=== PATIENT | female | born 1935 | race Caucasian/White ===

== ENCOUNTER 2016-07-03 12:52 | Day surgery (SDC) | payer MEDICARE, BC ==
--- NOTE | 2016-07-03 13:32 | OR ---
Operative Report - Dictated Report Narrative: Location: Main OR Anesthesia: None Preoperative Diagnosis: History of bladder cancer Postoperative Diagnosis: Same, no recurrence Procedure: #1 flexible cystoscopy with washing for cytology Indications: 81-year-old female history of TA G1 bladder cancer here for surveillance cystoscopy and cytology. Description: Consent obtained. Placed in the frog-leg position. Prepped and draped. Time-out taken . Scope inserted into the urethra and navigated to the bladder with ease. No tumors stones or suspicious lesions. Prior resection site well healed without evidence of recurrence No trabeculation. Ureters normal in number and position . Washing obtained sent for cytology. Normal bladder neck without any cystocele change. Normal urethra. Slight introital narrowing and atrophy. EBL: 0 Specimen: Washing for cytology Condition: tolerate procedure Important Findings: Negative cystoscopy. Cytology pending. FOLLOW UP: 18 months in the office.
[2016-07-03 13:53] VITALS: BP 100/66
== END 2016-07-03 12:53 | disposition home or self-care (01) ==
LOC: AMB 12:52
PROVIDERS: ATTEND Urology
PROC: 3E1K88X Irrigation of Genitourinary Tract using Irrigating Substance, Via Natural or Artificial Opening Endoscopic, Diagnostic (ICD-10-PCS; 2016-07-03)
PROC: 0TJB8ZZ Inspection of Bladder, Via Natural or Artificial Opening Endoscopic (ICD-10-PCS; principal; 2016-07-03 14:45)
DX: Z85.51 Personal history of malignant neoplasm of bladder (principal); I10 Essential (primary) hypertension; I25.10 Atherosclerotic heart disease of native coronary artery without angina pectoris; E11.9 Type 2 diabetes mellitus without complications; M19.90 Unspecified osteoarthritis, unspecified site; Z68.24 Body mass index [BMI] 24.0-24.9, adult; Z87.891 Personal history of nicotine dependence

== ENCOUNTER 2020-04-05 10:54 | Observation (INO) ==
[2020-04-05] MEDS: RINGER'S SOLUTION,LACTATED 1,000 ML IV PRN ×3 (11:38→18:19)
--- NOTE | 2020-04-05 11:44 | ANES ---
Anesthesia Pre Procedure Eval Vitals/Labs: Last Vital Signs Temp 36.4 C 04/05/20 11:06 Pulse 63 04/05/20 11:06 Resp 16 04/05/20 11:06 BP 111/76 04/05/20 11:06 Pulse Ox 97 04/05/20 11:06 HOME MEDICATIONS Docusate Sodium [Colace] 100 mg PO BID 03/05/12 [Last Taken 09/08/18] Multivitamin [One Daily] 1 ea PO DAILY 09/09/18 [Last Taken 09/09/18] aspirin 81 mg chewable tablet 81 mg PO DAILY 05/10/19 [Last Taken Unknown] cholecalciferol (vitamin D3) 50 mcg (2,000 unit) capsule 2,000 unit PO DAILY 03/30/20 [Last Taken Unknown] folic acid 800 mcg tablet 800 mcg PO DAILY 03/30/20 [Last Taken Unknown] Atenolol [Tenormin] 75 mg PO HS 04/05/20 [Last Taken Unknown] Atorvastatin Calcium [Lipitor] 80 mg PO HS 04/05/20 [Last Taken Unknown] Calcium Polycarbophil [Fibercon] 2 tab PO BID 04/05/20 [Last Taken Unknown] Clopidogrel Bisulfate [Plavix] 75 mg PO DAILY 04/05/20 [Last Taken 03/31/20] Furosemide [Lasix] 40 mg PO DAILY 04/05/20 [Last Taken Unknown] Lisinopril [Prinivil] 10 mg PO DAILY 04/05/20 [Last Taken Unknown] Potassium Chloride [K-Dur] 20 meq PO DAILY 04/05/20 [Last Taken Unknown] glipiZIDE [Glipizide] 5 mg PO DAILY 04/05/20 [Last Taken 04/05/20 08:00] Allergies/Adverse Reactions: Allergies Allergy/AdvReac Type Severity Reaction Status Date / Time Penicillins Allergy Intermediate Hives, Verified 04/05/20 11:14 swollen neck, ankles IV Contrast Dye Allergy Severe "felt like Uncoded 04/05/20 11:14 I was burning up" - Planned Procedure Planned Procedure: Esophagogastroduodenoscopy w/ poss Dilitation Medication List Reviewed:: Yes Allergies Verified: Yes Medical History (Last Reviewed 04/05/20 @ 11:38 by Karsten Loya CRNA) Metatarsal fracture (Acute) Foot fracture, left Onset Date: 01/30/20 fifth metatarsal Former consumption of alcohol Former tobacco use Wears dentures Anemia Onset Date: Unknown Arthritis Onset Date: ~1986 right hip Atrial fibrillation Carotid artery disease Coronary heart disease Onset Date: Unknown Diabetes mellitus, type 2 Onset Date: Unknown Diverticulosis Onset Date: Unknown of colon Hernia, hiatal Onset Date: Unknown Hyperlipidemia Onset Date: Unknown Hypertension Onset Date: Unknown Osteopenia Onset Date: ~2002 severe Peripheral vascular disease Onset Date: Unknown 03/2011 Dr Crowell [facility] placed stent in Rt leg Bladder cancer Broken ankle Onset Date: ~1992 Fracture of radius Onset Date: ~02/2010 closed, left distal radius History of angiography Onset Date: 01/05/182013. 01/05/18 angiography abd aorta w/bilateral lower extremity runoff. PER DIEM NURSE/stent right popliteal artery. Surgical History (Last Reviewed 04/05/20 @ 11:38 by Karsten Loya CRNA) H/O carotid endarterectomy Onset Date: ~07/2005 right H/O cystoscopy Onset Date: 03/21/10 multiple from [address] Jaime. bladder biopsy. recurrent superficial bladder carcinoma - [facility] H/O rectal polypectomy Onset Date: ~2000 sigmoidoscopy-benign hyperplastic mucosa and sessile polyp History of ankle surgery Onset Date: ~1992 History of cardiac cath Onset Date: ~1992 1 1992 History of cataract surgery Onset Date: ~2012 right and left History of cholecystectomy Onset Date: ~03/2000 lap-large stone in neck of the gallbladder History of colonoscopy Onset Date: 03/21/082000, 05/20/06 Bagan-benign polypoid mucosal hyperplasia. 03/21/08 Bagan-normal History of esophagogastroduodenoscopy (EGD) Onset Date: 03/21/08 03/21/08 Bagan-clotest negtive, mild to moderate gastritis. History of femoropopliteal bypass Onset Date: 11/25/06 10/21/06 Dr. Leyva-right. 11/25/06 Dr. Leyva-left History of heart artery stent Onset Date: ~1992 History of hysterectomy Onset Date: ~1964 MELINDA BSO - infection Family History (Last Reviewed 04/05/20 @ 11:38 by Karsten Loya CRNA) Father , age 62-[place] Myocardial infarction x3 Cancer metastatic lung ca Mother , age 66-pulmonary emboli Diabetes mellitus, type 2 Myocardial infarction Pulmonary embolism Brother , age 60's Cancer esophageal Sister , age 56 Myocardial infarction Cancer colon Sister , age 72-[place] Myocardial infarction Son Cancer leukemia - Family Anesthesia History Family History:: no untoward family reactions to anesthesia, no familial bleeding tendencies, no family history of clotting disorders, no family history of premature - Airway/Neck/Teeth Denture Type: Full upper, Full lower Mallampatti Score: 3 Thyromental (T-M) distance: > 6 cm Mandibulo Hyoid distance: > 3 cm - Respiratory Respiratory Physical: lungs clear Smoking Status: Current every day smoker Discussed smoking cessation including day of surgery: Yes - Cardiovascular Tolerate Activity: Fair Heart Sounds: S1 & S2, Regular - Gastrointestinal NPO since: mn - Anesthesia Assessment and Plan ASA Class: PS, III Anesthesia Type Plan: MAC
[2020-04-05] MEDS ORDERED: PROPOFOL VIAL IV ONE (11:47)
[2020-04-05] MEDS ORDERED: LIDOCAINE HCL 20 ML VIAL ONE (11:47)
--- NOTE | 2020-04-05 12:23 | ANES ---
Post Anesthesia Discharge - Transfer of Care Transfer of Care handoff given to nurse: Yes - Discharge from PACU Discharge from PACU when meets criteria: Yes - Discharge to ASU Discharge to ASU-no complications/pt stable: Yes
--- NOTE | 2020-04-05 12:24 | OR ---
Operative Report - Dictated Report Narrative: Operative report Preoperative diagnosis: Dysphagia Postoperative diagnosis: Same, antritis, Schatzki's ring appearance of the distal esophagus Operation: Esophagogastroduodenoscopy with biopsy and esophageal dilation CPT code #19623, 07717, 82808 Findings: As above in postoperative diagnosis Complications: None Surgeon: Dr. Fernando Mobley Estimated blood loss: Less than 2 mL Anesthesia: Monitored anesthesia care Procedure is as follows: After informed consent was given, the patient was taken to the endoscopy suite, and after adequate monitored anesthesia care was established, the gastroscope was placed in the posterior oropharynx. With good air insufflation, and good endoscopic visualization, the gastroscope was advanced to the third portion of the duodenum. The duodenum demonstrated slight inflammation without bleeding. Pylorus normal. Antrum of the stomach demonstrated antritis with erythema, edema, some small amount of punctate bleeding body and proximal stomach appeared normal. Gastroesophageal junction located at 38 cm. No significant hiatal hernia. Gastroesophageal junction demonstrated ringlike narrowing consistent with Schatzki's ring. The gastroesophageal junction and entire length of the esophagus was dilated sequentially with balloon to 18 mm. Body and proximal esophagus appeared normal. Patient tolerated the procedure very well. After dilation scope was reimplanted and hemostasis was seen to be satisfactory. The scope was removed with evacuation of air. Patient tolerated these procedures very well. She is awoken in the endoscopy suite in stable and satisfactory condition and transferred to the recovery area.
[2020-04-05] MEDS ORDERED: MORPHINE SULFATE 2 MG/ML DISP.SYRIN ONE (12:55)
[2020-04-05] MEDS: MORPHINE SULFATE 2 MG/ML DISP.SYRIN IV PRN ×2 (13:03→13:33)
--- NOTE | 2020-04-05 13:35 | ANES ---
Post Anesthesia Assessment - Vital Signs Vitals: Last Vital Signs Temp 36.2 C 04/05/20 12:20 Pulse 53 L 04/05/20 13:20 Resp 16 04/05/20 13:20 BP 115/41 04/05/20 13:20 Pulse Ox 95 04/05/20 13:20 Airway Patency: Normal - Mental Status Level Of Consciousness: Awake - Pain Level Pain Score: 8 - N/V Assessment Nausea/Vomiting Presence: None Dehydration:: No
[2020-04-05] MEDS ORDERED: metroNIDAZOLE/SODIUM CHLORIDE 500 MG/100 ML BAG IV SCH (14:30)
[2020-04-05] MEDS ORDERED: CIPROFLOXACIN IN 5 % DEXTROSE 400 MG/200 ML BAG IV SCH (14:30)
[2020-04-05] MEDS ORDERED: PHENOL 180 SPRAY BTL MM PRN (15:07)
[2020-04-05] MEDS ORDERED: POTASSIUM CHLORIDE 20 MEQ in DEXTROSE 5%-0.5 NORMAL SALINE 990 ML IV SCH (16:15)
--- NOTE | 2020-04-05 16:37 | PN ---
Subjective - Date and Time Seen Date: 04/05/20 Subjective Narrative: Patient seen in the recovery room 4-1/2 hours after undergoing esophageal dilation. Persistent pain with swallowing. Chest x-ray and 2 views of the neck demonstrate no abnormality. No substantial pain except with swelling. Ambulated with the patient 200 feet and she ambulates well. Normal voice. Lungs clear to auscultation bilaterally. Heart demonstrates regular rate and rhythm with some chronic bradycardia. I watched the patient eat 2 cups full of pudding. He eats very well although pain with swallowing. Will admit to the hospital for observation. Checking CT scan of the neck. Examination of the neck: Nontender, no crepitus, senile changes otherwise no change in suppleness, no masses Objective - Vitals Vitals: Last Vital Signs Temp 36.2 C 04/05/20 12:20 Pulse 63 04/05/20 16:10 Resp 16 04/05/20 16:10 BP 112/41 04/05/20 16:10 Pulse Ox 93 04/05/20 16:10
[2020-04-05 17:07] LABS: Hematocrit 36.7 % (37.0-47.0); Hemoglobin 11.6 gm/dL (12.5-16.0); Mean Cell Volume 99.2 fl (78-100); Mean Corpuscular Hemoglobin 31.4 pg (27-31); Mean Corpuscular Hgb Conc 31.6 g/dl (32-36); Mean Platelet Volume 10.6 fl (8-12.5); Neutrophil # 5.6 K/mm3 (1.3-6.0); Neutrophil % 73.7 % (42-75.0); Platelet Count 204 K/mm3 (150-450); Red Cell Distribution Width 14.1 % (11.5-14.0); White Blood Count 7.6 K/mm3 (4.0-10.5)
[2020-04-05 17:15] LABS: Anion Gap 11.6 mmol/L (6.8-13.8); BUN/Creatinine Ratio 12.1 (9.0-21.6); Calcium * 8.7 mg/dL (7.9-10.9); Carbon Dioxide 27.7 mmol/L (24-32.6); Estimated Creat Clear 22.1; Potassium 4.3 mmol/L (3.4-4.6)
[2020-04-05] MEDS ORDERED: FAMOTIDINE 20 MG in DEXTROSE 5 % IN WATER 100 ML IV SCH ×2 (18:00)
[2020-04-05] MEDS ORDERED: ONDANSETRON HCL/PF 2 MG/ML VIAL IV PRN (18:25)
[2020-04-05] MEDS ORDERED: RINGER'S SOLUTION,LACTATED 1,000 ML IV PRN (18:25)
[2020-04-05] MEDS ORDERED: ATENOLOL 50 MG TABLET PO ONE (18:36)
--- NOTE | 2020-04-05 18:55 | HP ---
Chief Complaint - Chief Complaint Date of Service: 04/05/20 Time of Service: 18:40 Chief Complaint: Severe neck pain when swallowing History of Present Illness: The patient is an 85-year-old female went EGD with esophageal dilation to [address] Mobley earlier today. In the immediate postop period she complained of severe pain in the neck rated as 9/10 with swallowing. She has continued to have constant pain which is still severe if she swallows. She has not vomited or had hematemesis. She denies abdominal pain. She denies substernal chest pain or shortness of breath. Plain x-rays of the neck and a soft tissue CT scan of the neck demonstrates no extra esophageal gas or soft tissue injury. Dr. Mobley does not have admitting privileges and has asked me to place the patient in observation status in his stead. Medical History (Last Reviewed 04/05/20 @ 18:45 by Brandi Raymond MD) Metatarsal fracture (Acute) Foot fracture, left Onset Date: 01/30/20 fifth metatarsal Former consumption of alcohol Former tobacco use Wears dentures Anemia Onset Date: Unknown Arthritis Onset Date: ~1986 right hip Atrial fibrillation Carotid artery disease Coronary heart disease Onset Date: Unknown Diabetes mellitus, type 2 Onset Date: Unknown Diverticulosis Onset Date: Unknown of colon Hernia, hiatal Onset Date: Unknown Hyperlipidemia Onset Date: Unknown Hypertension Onset Date: Unknown Osteopenia Onset Date: ~2002 severe Peripheral vascular disease Onset Date: Unknown 03/2011 Dr Crowell [facility] placed stent in Rt leg Bladder cancer Broken ankle Onset Date: ~1992 Fracture of radius Onset Date: ~02/2010 closed, left distal radius History of angiography Onset Date: 01/05/182013. 01/05/18 angiography abd aorta w/bilateral lower extremity runoff. ONCOLOGY RESEARCH RN/stent right popliteal artery. Surgical History: Surgical History (Last Reviewed 04/05/20 @ 18:45 by Brandi Raymond MD) H/O carotid endarterectomy Onset Date: ~07/2005 right H/O cystoscopy Onset Date: 03/21/10 multiple from [address] Jaime. bladder biopsy. recurrent superficial bladder carcinoma - [facility] H/O rectal polypectomy Onset Date: ~2000 sigmoidoscopy-benign hyperplastic mucosa and sessile polyp History of ankle surgery Onset Date: ~1992 History of cardiac cath Onset Date: ~1993 1 stent 1992 History of cataract surgery Onset Date: ~2012 right and left History of cholecystectomy Onset Date: ~03/2000 lap-large stone in neck of the gallbladder History of colonoscopy Onset Date: 03/21/082000, 05/20/06 Bagan-benign polypoid mucosal hyperplasia. 03/21/08 Bagan-normal History of esophagogastroduodenoscopy (EGD) Onset Date: 04/05/20 03/21/08 Segundo-clotest negtive, mild to moderate gastritis. 04/05/20 Itz- positive H.pylor. History of femoropopliteal bypass Onset Date: 11/25/06 10/21/06 Dr. Leyva-right. 11/25/06 Dr. Leyva-left History of heart artery stent Onset Date: ~1992 History of hysterectomy Onset Date: ~1964 MELINDA BSO - infection Family History: Family History (Last Reviewed 04/05/20 @ 18:45 by Brandi Raymond MD) Father , age 62-[place] Myocardial infarction x3 Cancer metastatic lung ca Mother , age 66-pulmonary emboli Diabetes mellitus, type 2 Myocardial infarction Pulmonary embolism Brother , age 60's Cancer esophageal Sister , age 56 Myocardial infarction Cancer colon Sister , age 72-[place] Myocardial infarction Son Cancer leukemia Social History: (Last Reviewed 04/05/20 @ 18:45 by Brandi Raymond MD) Social History: Marital status: / household members: none number of children: 1 current occupational status: retired Service: No Tobacco: Smoking Status: Current every day smoker tobacco type: cigarettes Smoking cigarettes per day: 12 Alcohol: alcohol intake: former Substance Use: substance use type: does not use Dietary Habits: caffeine: Yes Type: coffee Personal Safety: victim of physical abuse: No victim of emotional abuse: No Review Of Systems (GEN) - Review of Systems Generalized/Overall Review: Absent: Chills, Fever EENTM: Present: Throat Pain - She still has severe pain on the left side of her neck above the larynx when she swallows. There is constant low level discomfort otherwise Respiratory: Present: Other - She has COPD and has dyspnea on exertion. Absent: Cough, Shortness of Breath Cardiac: Present: Other - She has a history of atrial fibrillation. She has coronary artery stents and peripheral vascular stents as well. She stopped her Plavix 5 days prior to this procedure. Absent: Chest Pain Abdominal: Present: Constipation - Takes prune juice, FiberCon tabs, and Colace. Absent: Nausea, Vomiting, Abdominal Pain Genitourinary: Present: Nocturia - Gets up once or twice every night. Absent: Burning, Frequency Musculoskeletal: Present: Joint Pain - Chronic stable arthritic complaints Neurological: Present: No Symptoms Reported. Absent: Headache Skin: Present: No Symptoms Reported Endocrine: Present: No Symptoms Reported Immunizations: IMMUNIZATION HX Immunizations Up to Date Yes History of Influenza Vaccine Yes Hx Pneumococcal Vaccination Yes Allergies/Adverse Reactions: Allergies Allergy/AdvReac Type Severity Reaction Status Date / Time Penicillins Allergy Intermediate Hives, Verified 04/05/20 11:14 swollen neck, ankles IV Contrast Dye Allergy Severe "felt like Uncoded 04/05/20 11:14 I was burning up" Home Medications: HOME MEDICATIONS Docusate Sodium [Colace] 100 mg PO BID 03/05/12 [Last Taken 09/08/18] Multivitamin [One Daily] 1 ea PO DAILY 09/09/18 [Last Taken 09/09/18] aspirin 81 mg chewable tablet 81 mg PO DAILY 05/10/19 [Last Taken Unknown] cholecalciferol (vitamin D3) 50 mcg (2,000 unit) capsule 2,000 unit PO DAILY 03/30/20 [Last Taken Unknown] folic acid 800 mcg tablet 800 mcg PO DAILY 03/30/20 [Last Taken Unknown] Atenolol [Tenormin] 75 mg PO HS 04/05/20 [Last Taken Unknown] Atorvastatin Calcium [Lipitor] 80 mg PO HS 04/05/20 [Last Taken Unknown] Calcium Polycarbophil [Fibercon] 2 tab PO BID 04/05/20 [Last Taken Unknown] Clopidogrel Bisulfate [Plavix] 75 mg PO DAILY 04/05/20 [Last Taken 03/31/20] Famotidine [Pepcid] 20 mg PO BID #180 04/05/20 [Last Taken Unknown] Furosemide [Lasix] 40 mg PO DAILY 04/05/20 [Last Taken Unknown] Lisinopril [Prinivil] 10 mg PO DAILY 04/05/20 [Last Taken Unknown] Potassium Chloride [K-Dur] 20 meq PO DAILY 04/05/20 [Last Taken Unknown] glipiZIDE [Glipizide] 5 mg PO DAILY 04/05/20 [Last Taken 04/05/20 08:00] Exam - Exam Vital Signs: Vital Signs - Last Taken Temp 36.2 C 04/05/20 12:20 Pulse 57 L 04/05/20 18:10 Resp 16 04/05/20 18:10 BP 120/35 04/05/20 18:10 Pulse Ox 94 04/05/20 18:10 Constitutional: Present: Alert, Oriented x3, Cooperative, Well developed, Well nourished, No distress ENT Exam: Present: normal ENT inspection, other - She left her dentures at home Eye Exam: bilateral eye: normal inspection Neck: Present: supple, normal inspection, trachea midline, other - No crepitus Back Exam: Present: normal inspection Breasts: Present: Exam deferred Respiratory: Present: lungs clear, no respiratory distress Cardiovascular/Chest: Present: other - The underlying rhythm is regular however there are multiple extra beats over 1 minute. She has a decreased left radial pulse and the posterior tibial artery pulses are nonpalpable Abdomen: Present: soft, nontender /Rectal: Present: Exam deferred Extremity: Present: normal range of motion, normal inspection, no pedal edema, no calf tenderness Skin Exam: Present: normal color Neurologic: Present: oil well pumper II-XII nml as tested, normal cerebellar test, no motor/sensory deficits Appearance: Present: appropriate appearance, appropriate insight, neat, no memory impairment Eye contact: Present: cooperative, good eye contact, normal speech Thoughts: Present: normal thought pattern Diagnostic Studies: Abnormal Lab Results 04/05/20 04/05/20 Range/Units 17:02 17:02 RBC 3.70 L (4.2-5.4) M/mm3 Hgb 11.6 L (12.5-16.0) gm/dL Hct 36.7 L (37.0-47.0) % MCH 31.4 H (27-31) pg MCHC 31.6 L (32-36) g/dl RDW 14.1 H (11.5-14.0) % Lymphocytes % 19.1 L (20-51) % Lymphocytes # 1.45 L (1.5-3.5) k/mm3 Creatinine 1.65 H (0.4-1.4) mg/dL Est GFR (Non-Af Amer) 32 L (60-130) mL/min Random Glucose 155 H (70-110) mg/dL Microbiology 04/05/20 12:05 CLOtest - Final Biopsy Laboratory Results WBC 7.6 K/mm3 (4.0-10.5) 04/05/20 17:02 RBC 3.70 M/mm3 (4.2-5.4) L 04/05/20 17:02 Hgb 11.6 gm/dL (12.5-16.0) L 04/05/20 17:02 Hct 36.7 % (37.0-47.0) L 04/05/20 17:02 MCV 99.2 fl (78-100) 04/05/20 17:02 MCH 31.4 pg (27-31) H 04/05/20 17:02 MCHC 31.6 g/dl (32-36) L 04/05/20 17:02 RDW 14.1 % (11.5-14.0) H 04/05/20 17:02 Plt Count 204 K/mm3 (150-450) 04/05/20 17:02 MPV 10.6 fl (8-12.5) 04/05/20 17:02 Immature Gran % (Auto) 0.30 % (0.001-0.429) 04/05/20 17:02 Immature Gran # (Auto) 0.02 K/mm3 (0.000-0.0310) 04/05/20 17:02 Neutrophils % 73.7 % (42-75.0) 04/05/20 17:02 Lymphocytes % 19.1 % (20-51) L 04/05/20 17:02 Monocytes % 4.6 % (0.0-9) 04/05/20 17:02 Eosinophils % 1.5 % (0.0-3.0) 04/05/20 17:02 Basophils % 0.8 % (0.0-1.0) 04/05/20 17:02 Nucleated RBC % 0.0 k/mm3 (0-1) 04/05/20 17:02 Neutrophils # 5.6 K/mm3 (1.3-6.0) 04/05/20 17:02 Lymphocytes # 1.45 k/mm3 (1.5-3.5) L 04/05/20 17:02 Monocytes # 0.4 k/mm3 (0.0-1.0) 04/05/20 17:02 Eosinophils # 0.1 k/mm3 (0.0-0.7) 04/05/20 17:02 Absolute Basophils 0.1 k/mm3 (0.0-0.1) 04/05/20 17:02 Sodium 140 mmol/L (132-142) 04/05/20 17:02 Plasma Sodium 141 mmol/L (130-142) 04/05/20 17:02 Potassium 4.3 mmol/L (3.4-4.6) 04/05/20 17:02 Chloride 105 mmol/L (97-106) 04/05/20 17:02 Carbon Dioxide 27.7 mmol/L (24-32.6) 04/05/20 17:02 Anion Gap 11.6 mmol/L (6.8-13.8) 04/05/20 17:02 BUN 20 mg/dL (3-23) 04/05/20 17:02 Creatinine 1.65 mg/dL (0.4-1.4) H 04/05/20 17:02 Est GFR (Non-Af Amer) 32 mL/min (60-130) L 04/05/20 17:02 BUN/Creatinine Ratio 12.1 (9.0-21.6) 04/05/20 17:02 Random Glucose 155 mg/dL (70-110) H 04/05/20 17:02 Calcium 8.7 mg/dL (7.9-10.9) 04/05/20 17:02 Plain x-rays of the soft tissues of the neck and a neck CT are negative for free air or apparent soft tissue injury Assessment/Plan - Assessment/Plan (1) Difficulty swallowing Assessment: There was a Schatzki's ring demonstrated on EGD. Her esophagus was balloon di lated throughout its length to 18 mm Problem: Acute Qualifiers: Dysphagia type: unspecified Qualified Code(s): R13.10 - Dysphagia, unspecified (2) Odynophagia Assessment: She still complains of severe pain in the left upper neck with swallowing. She has baseline pain as well. She will be placed in observation status. SCDs will be used for VTE prophylaxis as therapeutic anticoagulation would pose a problem should she in fact have esophageal injury. Ice chips, sips of clear liquids and medications. We will continue atenolol at at bedtime. I have discussed the risk for observation status with her. I explained it is very important for her to call for assistance when she wants to be up. We will obtain another CBC in the morning. Telemetry due to her history of atrial fibrillation Problem: Acute
[2020-04-05] MEDS ORDERED: ATENOLOL 25 MG TABLET PO SCH (21:00)
[2020-04-05] MEDS ORDERED: DOCUSATE SODIUM 100 MG CAPSULE PO SCH (21:00)
[2020-04-05] MEDS: HYDROmorphone HCL 1 MG/ML DISP.SYRIN IV PRN ×2 (21:00→23:08)
[2020-04-06] MEDS: HYDROmorphone HCL 1 MG/ML DISP.SYRIN IV PRN (02:28)
[2020-04-06 06:03] LABS: Hematocrit 36.5 % (37.0-47.0); Hemoglobin 11.2 gm/dL (12.5-16.0); Mean Cell Volume 100.3 fl (78-100); Mean Corpuscular Hemoglobin 30.8 pg (27-31); Mean Corpuscular Hgb Conc 30.7 g/dl (32-36); Mean Platelet Volume 10.3 fl (8-12.5); Neutrophil # 5.1 K/mm3 (1.3-6.0); Neutrophil % 66.8 % (42-75.0); Platelet Count 185 K/mm3 (150-450); Red Blood Count 3.64 M/mm3 (4.2-5.4); Red Cell Distribution Width 14.2 % (11.5-14.0); White Blood Count 7.7 K/mm3 (4.0-10.5)
[2020-04-06] MEDS ORDERED: ACETAMINOPHEN 325 MG TABLET PO ONE (08:22)
--- NOTE | 2020-04-06 08:28 | DS ---
(1) Difficulty swallowing Diagnosis(s): She has handled clear liquids well and feels that she can swallow soft foods although there is still some odynophagia Clinically there is no evidence of a perforation Problem: Chronic Qualifiers: Dysphagia type: pharyngoesophageal phase Qualified Code(s): R13.14 - Dysphagia, pharyngoesophageal phase (2) Odynophagia Diagnosis(s): She continues to have some baseline discomfort in the left upper neck and odynophagia, but less. She feels that Tylenol would manage her discomfort and she has soft foods at home. There is no clinical evidence of perforation Problem: Acute Date of Discharge:: 04/06/20 Hospital Course: She was placed in observation status with telemetry. SCDs were used for VTE prophylaxis in lieu of therapeutic anticoagulation due to the possibility of perforation. She tolerated clear liquids. Her vital signs remained stable. Her atenolol was held due to bradycardia. This morning she is afebrile, tolerating clear liquids, and feels she can take care of herself at home. She will be discharged on mechanical soft diet to advance as tolerated. She is to use OTC Tylenol for discomfort. She has phone numbers to call for questions or concerns. She is to continue her usual medications as listed in the history and physical exam, including restarting her Plavix. A return office appointment has been made with Dr. Mobley. Procedures Performed: see notes below - She had an EGD with esophageal dilation performed by Dr. Mobley on 04/05/2020 Results and Findings: Lab Pending Results 04/05/20 17:02: WBC 7.6, RBC 3.70 L, Hgb 11.6 L, Hct 36.7 L, MCV 99.2, MCH 31.4 H, MCHC 31.6 L, RDW 14.1 H, Plt Count 204, MPV 10.6, Immature Gran % (Auto) 0.30, Immature Gran # (Auto) 0.02, Neutrophils % 73.7, Lymphocytes % 19.1 L, Monocytes % 4.6, Eosinophils % 1.5, Basophils % 0.8, Nucleated RBC % 0.0, N eutrophils # 5.6, Lymphocytes # 1.45 L, Monocytes # 0.4, Eosinophils # 0.1, Absolute Basophils 0.1 04/05/20 17:02: Sodium 140, Plasma Sodium 141, Potassium 4.3, Chloride 105, Carbon Dioxide 27.7, Anion Gap 11.6, BUN 20, Creatinine 1.65 H, Est GFR (Non-Af Amer) 32 L, BUN/Creatinine Ratio 12.1, Random Glucose 155 H, Calcium 8.7 04/06/20 05:45: WBC 7.7, RBC 3.64 L, Hgb 11.2 L, Hct 36.5 L, MCV 100.3 H, MCH 30.8, MCHC 30.7 L, RDW 14.2 H, Plt Count 185, MPV 10.3, Immature Gran % (Auto) 0.10, Immature Gran # (Auto) 0.01, Neutrophils % 66.8, Lymphocytes % 24.2, Monocytes % 6.4, Eosinophils % 1.9, Basophils % 0.6, Nucleated RBC % 0.0, Neutrophils # 5.1, Lymphocytes # 1.86, Monocytes # 0.5, Eosinophils # 0.2, Absolute Basophils 0.1 Discharge Location: Home Disposition: Home self-care Condition: Good Discharge Activity: Activity as tolerated Discharge Diet: [facility] soft Referrals: Rommel Cisneros MD [Primary Care Provider] - Problem Oriented Discharge Instructions to Patient/Family: Upper Endoscopy, Adult, Care After Additional Patient Instructions (free text): Please read your discharge instructions. Eat a soft diet for two days. Resume taking your Plavix on Friday. Your follow-up appointment with Dr. Mobley is scheduled for May 03 at 10:00 a.m. Complete Home Medications List: Complete Home Medication List: Docusate Sodium [Colace] 100 mg PO BID 03/05/12 Multivitamin [One Daily] 1 ea PO DAILY 09/09/18 aspirin 81 mg chewable tablet 81 mg PO DAILY 05/10/19 cholecalciferol (vitamin D3) 50 mcg (2,000 unit) capsule 2,000 unit PO DAILY 03/30/20 folic acid 800 mcg tablet 800 mcg PO DAILY 03/30/20 Atenolol [Tenormin] 75 mg PO HS 04/05/20 Atorvastatin Calcium [Lipitor] 80 mg PO HS 04/05/20 Calcium Polycarbophil [Fibercon] 2 tab PO BID 04/05/20 Clopidogrel Bisulfate [Plavix] 75 mg PO DAILY 04/05/20 Furosemide [Lasix] 40 mg PO DAILY 04/05/20 Lisinopril [Prinivil] 10 mg PO DAILY 04/05/20 Potassium Chloride [K-Dur] 20 meq PO DAILY 04/05/20 glipiZIDE [Glipizide] 2.5 mg PO DAILY 04/05/20
[2020-04-06] MEDS ORDERED: ASPIRIN 81 MG TAB.CHEW PO SCH (09:00)
[2020-04-06 09:29] VITALS: BP 142/62
== END 2020-04-06 09:40 | disposition home or self-care (01) ==
LOC: MS 10:54 → SUR 10:54
PROVIDERS: ADMIT Surgery; ATTEND Surgery